=== PATIENT | female | born 1945 | race Caucasian/White ===

== ENCOUNTER 2016-09-12 08:23 | Inpatient (IN) | payer OTHER ==
[~2016-09-12] VITALS: Ht 157.5 cm; Wt 76.5 kg
[~2016-09-12 08:23] MED LIST: ABILIFY15 MG PO; ABILIFY5 MG PO; ADVAIR 250/501 DISK IH; ADVIL MIGRAINE200 MG PO; ADVIL,NUPRIN,M200 MG PO; ADVIL200 M1 PO; ADVIL200 MG PO; AMBIEN10 MG PO; AMBIEN5 MG PO; ARIPIPRAZOLE15 MG PO; CARDIZEM CD,CA120 MG PO; CARDIZEM CD,CA240 MG PO; CARDIZEM CD,CA300 MG PO; CARDIZEM CD120 MG PO; CLONAZEPAM0.5 MG PO; CLONAZEPAM1 MG PO; CLOPIDOGREL75 MG PO; COLACE100 MG PO; DALIRESP500 MCG PO; DELTASONE1 MG; DELTASONE10 MG PO; DELTASONE20 M1 PO; DITROPAN5 MG PO; DOXYCYCLINE HY100 M3 PO; DUONEB3 ML IH; Desyrel PO; Ditropan PO; EFFEXOR XR150 MG PO; EFFEXOR XR75 MG PO; EFFEXOR75 MG PO; ENDOCET 5-3251 EACH PO; Effexor XR PO; FIORICET,ESG1 TABLET PO; FLONASE16 G1 BOTH NARES; FLUTICASONE PRO16 GM BOTH NARES; FUROSEMIDE20 MG PO; IMDUR30 MG PO; IRON325 M1 PO; KEFLEX750 MG PO; KEPPRA250 M1 PO; KEPPRA250 MG PO; KEPPRA750 MG PO; KLONOPIN0.5 M1 PO; KLONOPIN1 MG PO; LASIX20 MG PO; LEVAQUIN500 MG PO; LEVAQUIN750 MG PO; LEVETIRACETAM750 MG PO; LEVOFLOXACIN250 MG PO; LEVOFLOXACIN750 MG PO; LIDODERM 5% P1 PATCH TD; LISINOPRIL10 MG PO; LISINOPRIL5 MG PO; LOPRESSOR50 MG PO; Levaquin PO; Lopressor PO; MEDROL DOSEPAK4 MG PO; MELATONIN5 M1 PO; METOPROLOL PO; MUCINEX600 MG PO; MUPIROCIN22 GM TP; NITROSTAT0.4 MG SL; OMNICEF300 MG PO; PERCOCET 5/31 TABLET PO; PHENERGAN-CODE120 ML PO; PLAVIX75 MG PO; PRAVASTATIN SOD40 MG PO; PREDNISONE; PREDNISONE10 M1 PO; PREDNISONE10 MG PO; PREDNISONE20 MG PO; PREDNISONE5 MG PO; PREDNISONE50 MG PO; PRINIVIL10 MG PO; PROAIR HFA8.5 GM IH; PROTONIX40 MG PO; PROVENTIL,2.5 MG/3 M IH; Proventil,Ventolin H IH; SANCTURA XR60 MG PO; SIMVASTATIN40 M1 PO; SIMVASTATIN40 MG PO; SPIRIVA1 INHALATI IH; SYMBICORT IH; SYMBICORT60 INHALAT IH; THEO-24200 MG PO; THEO-DUR,THEOC200 MG PO; THEOPHYLLINE A200 M1 PO; THEOPHYLLINE400 MG PO; TOPROL XL50 MG PO; TOVIAZ4 MG PO; TRAZODONE HCL50 MG PO; VENLAFAXINE HC150 MG PO; VENLAFAXINE HCL75 M3 PO; VENTOLIN HFA18 GM IH; VESICARE5 MG PO; WELLBUTRIN SR100 MG PO; XANAX0.5 MG PO; XOPENEX1.25 MG/0. IH; ZESTRIL,PRINIVI10 M1 PO; ZITHROMAX TRI-500 MG PO; ZITHROMAX Z-PA250 MG PO; ZOLPIDEM TARTRA10 MG PO; ZOLPIDEM TARTRAT5 MG PO; predniSONE PO
[2016-09-12 09:10] LABS: MCH 27.8 PG (29.0-34.0); MCHC 31.4 G/DL (30.0-36.0); MCV 88.7 FL (83-99); MEAN PLAT.VOLUME 9.8 uM^3 (9.5-12.4); PLATELET COUNT 183 K/uL (156-360); RBC DIS.WIDTH-CV 14.3 % (11.8-14.6); RBC DIS.WIDTH-SD 45.8 % (39-53); RED BLOOD COUNT 4.17 M/uL (3.80-5.20); WHITE BLOOD COUNT 12.9 K/uL (4.1-10.2)
[2016-09-12 09:20] LABS: CHLORIDE 107 mEq/L (99-109)
[2016-09-12 09:21] LABS: POTASSIUM 4.6 mEq/L (3.7-5.4); SODIUM 142 mEq/L (136-147)
[2016-09-12 09:22] LABS: GLUCOSE 159 mg/dL (70-99)
[2016-09-12 09:24] LABS: ANION GAP 12 MEQ/L (2-14)
[2016-09-12 09:26] LABS: GFR ESTIMATE (CALCULATED) > 59 mL/min/
[2016-09-12 09:27] LABS: UREA NITROGEN (BUN) 27 mg/dL (9-23)
[2016-09-12 09:30] LABS: TROP-I INTERPRETATION NEGATIVE; TROPONIN-I 0.01 ng/mL (0.0-0.30)
[2016-09-12 11:24] LABS: ADD MIUA? NO; BILIRUBIN NEGATIVE; BLOOD NEGATIVE; COLOR YELLOW ((YELLOW)); GLUCOSE (STRIP) NEGATIVE; KETONES NEGATIVE; LEUKOCYTES NEGATIVE; NITRITE NEGATIVE; PROTEIN (STRIP) 30; UCUL ADDED? NO; UROBILINOGEN 0.2 MG/DL (0.2-1.0)
[2016-09-12] MEDS ORDERED: DILTIAZEM 24HR300 MG PO (12:31)
[2016-09-12] MEDS ORDERED: NITROGLYCERIN0.4 MG SL (12:31)
[2016-09-12] MEDS ORDERED: PREDNISONE10 MG PO (12:32)
[2016-09-12] MEDS ORDERED: PRAVACHOL40 MG PO (12:33)
[2016-09-12 14:00] VITALS: BP 137/76
[2016-09-12 18:31] LABS: TROP-I INTERPRETATION NEGATIVE; TROPONIN-I < 0.01 ng/mL (0.0-0.30)
[2016-09-12 19:29] VITALS: BP 136/61
[2016-09-12 23:02] VITALS: BP 134/64
[2016-09-13 04:33] VITALS: BP 134/61
[2016-09-13 06:15] LABS: ANION GAP 6 MEQ/L (2-14); CHLORIDE 107 MEQ/L (99-109); GFR ESTIMATE (CALCULATED) > 59 mL/min/; GLUCOSE 143 mg/dL (70-99); POTASSIUM 4.3 MEQ/L (3.7-5.4); SAMPLE HEMOLYSIS CHECK 0; SAMPLE ICTERIC CHECK 0; SAMPLE LIPEMIA CHECK 0; SODIUM 142 MEQ/L (136-147); UREA NITROGEN (BUN) 33 mg/dL (9-23)
[2016-09-13 08:07] LABS: BASE EXCESS 1.5 mEq/L (-3 to +3); BICARBONATE 26.6 mEq/L (22-26); CARBOXY HGB 1.2 % (0-5); COMMENTS - BLOOD GASES A+C+; DEVICE NC; METHEMOGLOBIN 1.3 % (0-1.5); O2 FLOW 2 L/MIN; PCO2 43 mm Hg (35-45); PO2 88 mm Hg (80-100); SITE LR; TOTAL RESP RATE 28 resp/min
[2016-09-13 08:56] VITALS: BP 145/90
[2016-09-13 09:53] LABS: TROP-I INTERPRETATION NEGATIVE; TROPONIN-I < 0.01 ng/mL (0.0-0.30)
[2016-09-13 12:49] VITALS: BP 140/65
[2016-09-13 16:48] VITALS: BP 119/68
[2016-09-13 21:58] VITALS: BP 115/61
[2016-09-13 23:57] VITALS: BP 145/65
[2016-09-14 04:19] VITALS: BP 160/73
[2016-09-14 08:35] VITALS: BP 145/75
[2016-09-14 13:06] VITALS: BP 122/68
[2016-09-14 15:56] VITALS: BP 128/72
[2016-09-14 20:04] VITALS: BP 142/77
[2016-09-15] VITALS (7 sets, daily range): BP systolic 110–155; BP diastolic 53–80
[2016-09-16 04:02] LABS: INFLUENZA A VIRAL ANTIGEN NEGATIVE; INFLUENZA B VIRAL ANTIGEN NEGATIVE
[2016-09-16 04:52] VITALS: BP 136/83
[2016-09-16 08:21] VITALS: BP 162/83
[2016-09-16] MEDS ORDERED: AZITHROMYCIN500 M1 PO (15:09)
[2016-09-16] MEDS ORDERED: ALPRAZOLAM0.25 M2 PO (15:10)
[2016-09-16] MEDS ORDERED: PREDNISONE20 MG PO (15:10)
== END 2016-09-16 15:40 | disposition home or self-care (01) | DRG 191 ==
LOC: EME → EDBD 08:23 → EME 08:23 → EDOF 12:12 → 5WEST 12:12
PROVIDERS: Emergency Medicine; Hospitalist; Internal Medicine; Nurse Practitioner Adult Health; Nurse Practitioner Family
DX: J44.0 Chronic obstructive pulmonary disease with (acute) lower respiratory infection (principal); J20.9 Acute bronchitis, unspecified; J44.1 Chronic obstructive pulmonary disease with (acute) exacerbation; J96.11 Chronic respiratory failure with hypoxia; Z99.81 Dependence on supplemental oxygen; I42.9 Cardiomyopathy, unspecified; I48.91 Unspecified atrial fibrillation; I10 Essential (primary) hypertension; G40.909 Epilepsy, unspecified, not intractable, without status epilepticus; F03.90 Unspecified dementia, unspecified severity, without behavioral disturbance, psychotic disturbance, mood disturbance, and anxiety; F41.9 Anxiety disorder, unspecified; F32.9 Major depressive disorder, single episode, unspecified; I25.10 Atherosclerotic heart disease of native coronary artery without angina pectoris; I25.2 Old myocardial infarction; E66.9 Obesity, unspecified; Z68.30 Body mass index [BMI] 30.0-30.9, adult; Z87.891 Personal history of nicotine dependence
CPT/HCPCS: 36600; 71010; 71275; 80048; 81003; 82803; 84484; 85027; 87070; 87205; 87502; 93005; 94640; 94640 76; 94799; 99202; 99281; 99285; G0378; J1650; J2930; J7030; J7512; J7644

== ENCOUNTER 2016-11-26 15:06 | Inpatient (IN) | payer OTHER ==
[~2016-11-26] VITALS: Ht 157.5 cm; Wt 80.1 kg
[~2016-11-26 15:06] MED LIST changes: +ALPRAZOLAM0.25 M2 PO; +AZITHROMYCIN500 M1 PO; +DILTIAZEM 24HR300 MG PO; +NITROGLYCERIN0.4 MG SL; +PRAVACHOL40 MG PO
[2016-11-26 15:53] LABS: HEMATOCRIT 35.8 % (36.0-46.0); MCH 28.8 PG (29.0-34.0); MCHC 30.4 G/DL (30.0-36.0); MCV 94.5 FL (83-99); MEAN PLAT.VOLUME 10.1 uM^3 (9.5-12.4); PLATELET COUNT 192 K/uL (156-360); RBC DIS.WIDTH-CV 14.3 % (11.8-14.6); RBC DIS.WIDTH-SD 49.1 % (39-53); RED BLOOD COUNT 3.79 M/uL (3.80-5.20); WHITE BLOOD COUNT 12.5 K/uL (4.1-10.2)
[2016-11-26 16:03] LABS: CHLORIDE 107 mEq/L (99-109); SODIUM 140 mEq/L (136-147)
[2016-11-26 16:05] LABS: GLUCOSE 207 mg/dL (70-99)
[2016-11-26 16:06] LABS: ANION GAP 14 MEQ/L (2-14)
[2016-11-26 16:09] LABS: GFR ESTIMATE (CALCULATED) 52 mL/min/
[2016-11-26 16:10] LABS: UREA NITROGEN (BUN) 20 mg/dL (9-23)
[2016-11-26 16:14] LABS: TROP-I INTERPRETATION NEGATIVE; TROPONIN-I < 0.01 ng/mL (0.0-0.30)
[2016-11-26] MEDS ORDERED: SPIRIVA1 INHALATI IH (19:59)
[2016-11-26] MEDS ORDERED: AZITHROMYCIN500 M1 PO (20:01)
[2016-11-26] MEDS ORDERED: ADVIL MIGRAINE200 MG PO (20:01)
[2016-11-26] MEDS ORDERED: ISOSORBIDE MONO30 MG PO (20:02)
[2016-11-26] MEDS ORDERED: THEOPHYLLINE400 MG PO (20:02)
[2016-11-26] MEDS ORDERED: LORAZEPAM0.5 MG PO (20:02)
[2016-11-26] MEDS ORDERED: PREDNISONE10 MG PO (20:02)
[2016-11-26] MEDS ORDERED: LEVALBUTER1.25 MG/0. IH (20:03)
[2016-11-26] MEDS ORDERED: PROTONIX40 MG PO (20:03)
[2016-11-26] MEDS ORDERED: LISINOPRIL5 MG PO (20:03)
[2016-11-27 01:34] VITALS: BP 130/64
[2016-11-27 04:34] VITALS: BP 119/58
[2016-11-27 06:26] LABS: HEMATOCRIT 34.1 % (36.0-46.0); MCH 28.4 PG (29.0-34.0); MCHC 30.5 G/DL (30.0-36.0); MCV 93.2 FL (83-99); MEAN PLAT.VOLUME 10.2 uM^3 (9.5-12.4); PLATELET COUNT 206 K/uL (156-360); RBC DIS.WIDTH-CV 14.3 % (11.8-14.6); RBC DIS.WIDTH-SD 48.5 % (39-53); RED BLOOD COUNT 3.66 M/uL (3.80-5.20)
[2016-11-27 06:39] LABS: WHITE BLOOD COUNT 8.5 K/uL (4.1-10.2)
[2016-11-27 06:57] VITALS: BP 114/55
[2016-11-27 06:57] LABS: ALKALINE PHOSPHATASE 74 IU/L (3-129); ANION GAP 13 MEQ/L (2-14); CHLORIDE 105 MEQ/L (99-109); GFR ESTIMATE (CALCULATED) 58 mL/min/; GLUCOSE 153 mg/dL (70-99); POTASSIUM 4.3 MEQ/L (3.7-5.4); SAMPLE HEMOLYSIS CHECK 0; SAMPLE ICTERIC CHECK 0; SAMPLE LIPEMIA CHECK 0; SODIUM 140 MEQ/L (136-147); TOTAL BILIRUBIN 0.2 MG/DL (0.0-1.0); UREA NITROGEN (BUN) 23 mg/dL (9-23)
[2016-11-27 07:39] LABS: Estimated Average Glucose 120 mg/dL (70-123); HEMOGLOBIN A1c (GLYCOHEMOGLOB) 5.8 % HGB (Below 5.7)
[2016-11-27 11:41] VITALS: BP 112/55
[2016-11-27 12:12] LABS: POINT-OF-CARE METER ID UU13113831
[2016-11-27 15:41] VITALS: BP 120/65
[2016-11-27 20:15] VITALS: BP 100/51
[2016-11-28] VITALS (7 sets, daily range): BP systolic 109–1120; BP diastolic 55–65
[2016-11-28 06:23] LABS: ANION GAP 7 MEQ/L (2-14); CHLORIDE 108 MEQ/L (99-109); GFR ESTIMATE (CALCULATED) 52 mL/min/; GLUCOSE 146 mg/dL (70-99); MAGNESIUM 1.7 mg/dl (1.3-2.7); POTASSIUM 4.9 MEQ/L (3.7-5.4); SAMPLE HEMOLYSIS CHECK 0; SAMPLE ICTERIC CHECK 0; SAMPLE LIPEMIA CHECK 0; SODIUM 143 MEQ/L (136-147); UREA NITROGEN (BUN) 39 mg/dL (9-23)
[2016-11-28 06:25] LABS: EOSINOPHIL (%) 0 % (0-5); HEMATOCRIT 32.3 % (36.0-46.0); IMMATURE GRANULOCYTE (%) 0.6 % (0.0-0.7); IMMATURE GRANULOCYTE COUNT 0.1 K/uL; LYMPHOCYTE COUNT 0.7 K/uL (1.0-2.8); MCH 28.9 PG (29.0-34.0); MCV 96.1 FL (83-99); MONOCYTE (%) 2.4 % (3-12); MONOCYTE COUNT 0.3 K/uL (0-0.8); NEUTROPHIL (%) 92.1 % (45-76); PLATELET COUNT 190 K/uL (156-360); RBC DIS.WIDTH-CV 14.6 % (11.8-14.6); RBC DIS.WIDTH-SD 52.1 % (39-53); RED BLOOD COUNT 3.36 M/uL (3.80-5.20)
[2016-11-28 06:37] LABS: WHITE BLOOD COUNT 14.1 K/uL (4.1-10.2)
[2016-11-28 08:36] LABS: BASE EXCESS 0 mEq/L (-3 to +3); BICARBONATE 24.8 mEq/L (22-26); CARBOXY HGB 0.4 % (0-5); METHEMOGLOBIN 0.5 % (0-1.5); PCO2 40 mm Hg (35-45); PO2 74 mm Hg (80-100)
[2016-11-28 08:38] LABS: COMMENTS - BLOOD GASES A+C+; DEVICE NC; O2 FLOW 2 L/MIN; SITE RR; TOTAL RESP RATE 24 resp/min
[2016-11-28 09:06] LABS: TROP-I INTERPRETATION NEGATIVE; TROPONIN-I < 0.01 ng/mL (0.0-0.30)
[2016-11-28 19:12] LABS: ADD MIUA? NO; BILIRUBIN NEGATIVE; BLOOD NEGATIVE; COLOR YELLOW ((YELLOW)); GLUCOSE (STRIP) NEGATIVE; KETONES NEGATIVE; LEUKOCYTES NEGATIVE; NITRITE NEGATIVE; PROTEIN (STRIP) NEGATIVE; SPECIFIC GRAVITY 1.021 (1.000-1.030); UROBILINOGEN 0.2 MG/DL (0.2-1.0)
[2016-11-29 03:48] VITALS: BP 129/53
[2016-11-29 07:23] VITALS: BP 114/64
[2016-11-29 09:08] LABS: HEMATOCRIT 32.1 % (36.0-46.0); MCH 28.7 PG (29.0-34.0); MCHC 30.8 G/DL (30.0-36.0); MEAN PLAT.VOLUME 9.8 uM^3 (9.5-12.4); PLATELET COUNT 217 K/uL (156-360); RBC DIS.WIDTH-CV 14.7 % (11.8-14.6); RBC DIS.WIDTH-SD 50.2 % (39-53); RED BLOOD COUNT 3.45 M/uL (3.80-5.20); WHITE BLOOD COUNT 15.1 K/uL (4.1-10.2)
[2016-11-29 09:42] LABS: ANION GAP 10 MEQ/L (2-14); CHLORIDE 105 MEQ/L (99-109); GFR ESTIMATE (CALCULATED) 52 mL/min/; GLUCOSE 173 mg/dL (70-99); POTASSIUM 3.8 MEQ/L (3.7-5.4); SAMPLE HEMOLYSIS CHECK 0; SAMPLE ICTERIC CHECK 0; SAMPLE LIPEMIA CHECK 0; SODIUM 140 MEQ/L (136-147); UREA NITROGEN (BUN) 47 mg/dL (9-23)
[2016-11-29 11:27] VITALS: BP 114/64
[2016-11-29 16:55] VITALS: BP 150/62
[2016-11-29 19:35] VITALS: BP 148/79
[2016-11-29 23:19] VITALS: BP 145/62
[2016-11-30 03:29] VITALS: BP 143/70
[2016-11-30 07:02] VITALS: BP 130/76
[2016-11-30 11:05] VITALS: BP 122/74
[2016-11-30 11:33] VITALS: BP 132/83
[2016-11-30 15:36] VITALS: BP 148/64
== END 2016-11-30 18:40 | disposition home health service (06) | DRG 191 ==
LOC: EME 15:06 → EDOF 22:08 → 5WEST 22:08 → EDOF 22:08 → 5WEST 11-27 01:16 → 3EAST 11-27 11:23 → 5WEST 11-27 11:23 → 3EAST 11-27 19:36
PROVIDERS: Emergency Medicine; Hospitalist; Internal Medicine; Physician Assistant
DX: J44.1 Chronic obstructive pulmonary disease with (acute) exacerbation (principal); J96.11 Chronic respiratory failure with hypoxia; I42.9 Cardiomyopathy, unspecified; R00.0 Tachycardia, unspecified; I25.10 Atherosclerotic heart disease of native coronary artery without angina pectoris; Z99.81 Dependence on supplemental oxygen; I10 Essential (primary) hypertension; F03.90 Unspecified dementia, unspecified severity, without behavioral disturbance, psychotic disturbance, mood disturbance, and anxiety; I25.2 Old myocardial infarction; E78.00 Pure hypercholesterolemia, unspecified; E66.9 Obesity, unspecified; K21.9 Gastro-esophageal reflux disease without esophagitis; G40.909 Epilepsy, unspecified, not intractable, without status epilepticus; F32.9 Major depressive disorder, single episode, unspecified; R73.9 Hyperglycemia, unspecified; D64.9 Anemia, unspecified; G47.30 Sleep apnea, unspecified; J20.9 Acute bronchitis, unspecified; J44.0 Chronic obstructive pulmonary disease with (acute) lower respiratory infection; F41.9 Anxiety disorder, unspecified
CPT/HCPCS: 36600; 71010; 71020; 71275; 80048; 80053; 80198; 81003; 82607; 82728; 82746; 82803; 82948; 83036; 83735; 84466; 84484; 85025; 85027; 85045; 87086; 93005; 94640; 94640 76; 94799; 99202; 99281; 99285; G0378; G8978 GP CI; G8979 GP CH; G8987 GO CI; G8988 GO CH; J1644; J2920; J2930; J7120; J7512; J7644

== ENCOUNTER 2017-03-05 18:51 | Inpatient (IN) | payer OTHER ==
[~2017-03-05] VITALS: Ht 157.5 cm; Wt 85.0 kg
[~2017-03-05 18:51] MED LIST changes: +ISOSORBIDE MONO30 MG PO; +LEVALBUTER1.25 MG/0. IH; +LORAZEPAM0.5 MG PO
[2017-03-05 19:18] LABS: HEMATOCRIT 37.6 % (36.0-46.0); MCH 27.7 PG (29.0-34.0); MCHC 29.8 G/DL (30.0-36.0); MCV 93.1 FL (83-99); MEAN PLAT.VOLUME 9.9 uM^3 (9.5-12.4); PLATELET COUNT 142 K/uL (156-360); RBC DIS.WIDTH-CV 13.6 % (11.8-14.6); RBC DIS.WIDTH-SD 46.1 % (39-53); RED BLOOD COUNT 4.04 M/uL (3.80-5.20); WHITE BLOOD COUNT 7.8 K/uL (4.1-10.2)
[2017-03-05 19:32] LABS: CHLORIDE 103 mEq/L (99-109); POTASSIUM 3.8 mEq/L (3.7-5.4); SODIUM 145 mEq/L (136-147)
[2017-03-05 19:34] LABS: GLUCOSE 106 mg/dL (70-99)
[2017-03-05 19:35] LABS: ANION GAP 9 MEQ/L (2-14)
[2017-03-05 19:38] LABS: GFR ESTIMATE (CALCULATED) 58 mL/min/; UREA NITROGEN (BUN) 17 mg/dL (9-23)
[2017-03-05 19:43] LABS: TROP-I INTERPRETATION NEGATIVE; TROPONIN-I < 0.01 ng/mL (0.0-0.30)
[2017-03-05 19:55] LABS: D-DIMER ELISA 1.32 mg/L FEU (< 0.57)
[2017-03-05 23:43] VITALS: BP 141/73
[2017-03-06 01:30] LABS: TROP-I INTERPRETATION NEGATIVE; TROPONIN-I < 0.01 ng/mL (0.0-0.30)
[2017-03-06 01:37] LABS: ALKALINE PHOSPHATASE 80 IU/L (3-129); DIRECT BILIRUBIN 0.1 mg/dL (0.0-0.3); LIPASE 28 U/L (1.0-51.0); TOTAL BILIRUBIN 0.2 MG/DL (0.0-1.0)
[2017-03-06 04:59] VITALS: BP 127/71
[2017-03-06 09:00] VITALS: BP 127/60
[2017-03-06 09:06] LABS: MCH 27.7 PG (29.0-34.0); MCHC 30.5 G/DL (30.0-36.0); MCV 90.7 FL (83-99); PLATELET COUNT 162 K/uL (156-360); RBC DIS.WIDTH-CV 13.4 % (11.8-14.6); RED BLOOD COUNT 4.08 M/uL (3.80-5.20); WHITE BLOOD COUNT 8.1 K/uL (4.1-10.2)
[2017-03-06 09:31] LABS: TROP-I INTERPRETATION NEGATIVE; TROPONIN-I 0.02 ng/mL (0.0-0.30)
[2017-03-06 09:35] LABS: ANION GAP 10 MEQ/L (2-14); CHLORIDE 101 MEQ/L (99-109); GFR ESTIMATE (CALCULATED) > 59 mL/min/; GLUCOSE 150 mg/dL (70-99); POTASSIUM 4.1 MEQ/L (3.7-5.4); SAMPLE HEMOLYSIS CHECK 2; SAMPLE ICTERIC CHECK 0; SAMPLE LIPEMIA CHECK 0; SODIUM 142 MEQ/L (136-147); UREA NITROGEN (BUN) 15 mg/dL (9-23)
[2017-03-06] MEDS ORDERED: DILTIAZEM 24HR180 M3 PO (10:37)
[2017-03-06 11:25] LABS: POINT-OF-CARE METER ID UU14162513
[2017-03-06 11:26] VITALS: BP 116/65
[2017-03-06] MEDS ORDERED: LUNESTA3 MG PO (11:33)
[2017-03-06] MEDS ORDERED: FUROSEMIDE20 MG PO (11:33)
[2017-03-06 16:29] VITALS: BP 122/73
[2017-03-06 20:00] VITALS: BP 107/59
[2017-03-06 21:33] LABS: POINT-OF-CARE METER ID UU13113831
[2017-03-07 01:14] VITALS: BP 126/83
[2017-03-07 04:46] VITALS: BP 113/58
[2017-03-07 08:30] VITALS: BP 100/44
[2017-03-07 08:30] LABS: POINT-OF-CARE METER ID UU14162513
[2017-03-07 12:18] VITALS: BP 114/67
[2017-03-07 15:58] VITALS: BP 121/60
[2017-03-07 19:56] VITALS: BP 98/50
[2017-03-07 21:52] LABS: POINT-OF-CARE METER ID UU14162513
[2017-03-08 00:54] VITALS: BP 119/57
[2017-03-08 04:42] VITALS: BP 136/82
[2017-03-08 10:10] VITALS: BP 122/58
[2017-03-08 12:12] VITALS: BP 131/67
[2017-03-08 12:30] LABS: POINT-OF-CARE METER ID UU13113700
[2017-03-08] MEDS ORDERED: PREDNISONE10 MG PO (14:27)
[2017-03-08] MEDS ORDERED: LORAZEPAM0.5 MG PO (14:35)
== END 2017-03-08 16:22 | disposition home or self-care (01) | DRG 190 ==
LOC: EME 18:51 → EDOF 22:13 → 5WEST 22:13
PROVIDERS: Hospitalist; Internal Medicine
DX: J44.1 Chronic obstructive pulmonary disease with (acute) exacerbation (principal); J96.21 Acute and chronic respiratory failure with hypoxia; I51.81 Takotsubo syndrome; I50.9 Heart failure, unspecified; R00.0 Tachycardia, unspecified; M81.0 Age-related osteoporosis without current pathological fracture; F43.10 Post-traumatic stress disorder, unspecified; F31.9 Bipolar disorder, unspecified; I25.10 Atherosclerotic heart disease of native coronary artery without angina pectoris; F03.90 Unspecified dementia, unspecified severity, without behavioral disturbance, psychotic disturbance, mood disturbance, and anxiety; G40.909 Epilepsy, unspecified, not intractable, without status epilepticus; E78.5 Hyperlipidemia, unspecified; I89.0 Lymphedema, not elsewhere classified; M19.90 Unspecified osteoarthritis, unspecified site; Z99.81 Dependence on supplemental oxygen; I25.2 Old myocardial infarction; Z87.891 Personal history of nicotine dependence; Z68.34 Body mass index [BMI] 34.0-34.9, adult; Z79.51 Long term (current) use of inhaled steroids; Z79.899 Other long term (current) drug therapy
CPT/HCPCS: 71020; 71275; 80048; 80076; 82948; 83690; 84443; 84484; 85027; 85379; 93005; 94640; 94640 76; 94799; 97530 GO; 99202; 99281; 99285; G0378; G8987 GO CJ; G8988 CI; J1100; J1644; J1815; J2270; J2405; J2930; J3475; J7040; J7644

== ENCOUNTER 2017-08-09 16:03 | Inpatient (IN) | payer OTHER ==
[~2017-08-09] VITALS: Ht 157.5 cm; Wt 76.8 kg
[~2017-08-09 16:03] MED LIST changes: +DILTIAZEM 24HR180 M3 PO; +LUNESTA3 MG PO
[2017-08-09 17:30] LABS: HEMATOCRIT 45.2 % (36.0-46.0); MCH 28.1 PG (29.0-34.0); MCHC 31.6 G/DL (30.0-36.0); MEAN PLAT.VOLUME 10.4 uM^3 (9.5-12.4); PLATELET COUNT 187 K/uL (156-360); RED BLOOD COUNT 5.08 M/uL (3.80-5.20); WHITE BLOOD COUNT 15.9 K/uL (4.1-10.2)
[2017-08-09 17:40] LABS: CHLORIDE 101 mEq/L (99-109); POTASSIUM 3.1 mEq/L (3.7-5.4); SODIUM 140 mEq/L (136-147)
[2017-08-09 17:43] LABS: GLUCOSE 133 mg/dL (70-99)
[2017-08-09 17:44] LABS: ANION GAP 9 MEQ/L (2-14)
[2017-08-09 17:45] LABS: TOTAL BILIRUBIN 0.4 mg/dL (0.0-1.0)
[2017-08-09 17:46] LABS: ALKALINE PHOSPHATASE 78 IU/L (3-129)
[2017-08-09 17:47] LABS: GFR ESTIMATE (CALCULATED) 43 mL/min/
[2017-08-09 17:48] LABS: DIRECT BILIRUBIN 0.2 mg/dL (0.0-0.3); UREA NITROGEN (BUN) 20 mg/dL (9-23)
[2017-08-09 17:50] LABS: LIPASE 40 U/L (1.0-51.0)
[2017-08-09 17:55] LABS: TROP-I INTERPRETATION NEGATIVE; TROPONIN-I 0.02 ng/mL (0.0-0.30)
[2017-08-09 19:43] LABS: ADD MIUA? YES; BILIRUBIN NEGATIVE; BLOOD NEGATIVE; COLOR YELLOW ((YELLOW)); GLUCOSE (STRIP) 50; KETONES NEGATIVE; LEUKOCYTES TRACE; NITRITE NEGATIVE; PROTEIN (STRIP) 100; UROBILINOGEN 0.2 MG/DL (0.2-1.0)
[2017-08-09 19:49] LABS: BACTERIA RARE /HPF; EPITHELIAL CELLS 2+ /HPF; MUCUS TRACE /LPF; RED BLOOD CELLS 0-5 /HPF (0-5)
[2017-08-09 20:00] LABS: SPECIFIC GRAVITY 1.076 (1.000-1.030)
[2017-08-09] MEDS ORDERED: MORPHINE CON20 MG/M1 PO (20:15)
[2017-08-09] MEDS ORDERED: LORAZEPAM0.5 MG PO (20:15)
[2017-08-09] MEDS ORDERED: DULCOLAX10 MG PR (20:15)
[2017-08-09] MEDS ORDERED: COMPAZINE10 MG PO (20:16)
[2017-08-09] MEDS ORDERED: HYOSCYAMINE0.125 M1 SL (20:17)
[2017-08-09] MEDS ORDERED: HALOPERIDOL2 MG/1 ML PO (20:17)
[2017-08-09] MEDS ORDERED: TYLENOL650 MG PR (20:17)
[2017-08-09] MEDS ORDERED: SALINE NASAL SP45 ML BOTH NARES (20:18)
[2017-08-09] MEDS ORDERED: PHENERGAN1.25 MG/ML PO (20:20)
[2017-08-09] MEDS ORDERED: IMODIUM A-D2 M2 PO (20:21)
[2017-08-09] MEDS ORDERED: AZITHROMYCIN500 M1 PO (20:24)
[2017-08-09] MEDS ORDERED: PREDNISONE10 MG PO ×2 (20:26→20:41)
[2017-08-09] MEDS ORDERED: ALBUTEROL2.5 MG/3 M IH (20:27)
[2017-08-09] MEDS ORDERED: ATIVAN0.5 MG PO (20:40)
[2017-08-09] MEDS ORDERED: IRON325 M1 PO (20:41)
[2017-08-09 23:45] VITALS: BP 139/64
[2017-08-10] VITALS (7 sets, daily range): BP systolic 117–132; BP diastolic 58–63
[2017-08-10 06:01] LABS: HEMATOCRIT 40.3 % (36.0-46.0); MCH 27.9 PG (29.0-34.0); MEAN PLAT.VOLUME 10.3 uM^3 (9.5-12.4); PLATELET COUNT 149 K/uL (156-360); RBC DIS.WIDTH-CV 14.2 % (11.8-14.6); RBC DIS.WIDTH-SD 46.4 % (39-53); RED BLOOD COUNT 4.48 M/uL (3.80-5.20); WHITE BLOOD COUNT 10.7 K/uL (4.1-10.2)
[2017-08-10 06:25] LABS: ANION GAP 10 MEQ/L (2-14); CHLORIDE 102 MEQ/L (99-109); GFR ESTIMATE (CALCULATED) 43 mL/min/; GLUCOSE 182 mg/dL (70-99); SAMPLE HEMOLYSIS CHECK 0; SAMPLE ICTERIC CHECK 0; SAMPLE LIPEMIA CHECK 0; SODIUM 139 MEQ/L (136-147); UREA NITROGEN (BUN) 23 mg/dL (9-23)
[2017-08-10 06:29] LABS: POTASSIUM 4.2 MEQ/L (3.7-5.4)
[2017-08-10 08:46] LABS: TROP-I INTERPRETATION NEGATIVE; TROPONIN-I 0.01 ng/mL (0.0-0.30)
[2017-08-11 03:57] VITALS: BP 116/55
[2017-08-11 07:31] VITALS: BP 127/59
[2017-08-11 11:17] VITALS: BP 124/60
[2017-08-11 16:22] LABS: TROP-I INTERPRETATION NEGATIVE; TROPONIN-I 0.03 ng/mL (0.0-0.30)
[2017-08-11 16:27] VITALS: BP 127/60
[2017-08-11 19:46] VITALS: BP 138/70
[2017-08-11 22:57] VITALS: BP 130/72
[2017-08-12 04:00] VITALS: BP 142/78
[2017-08-12 07:00] VITALS: BP 145/94
[2017-08-12 11:00] VITALS: BP 122/55
[2017-08-12] MEDS ORDERED: PREDNISONE10 MG PO (11:29)
[2017-08-12] MEDS ORDERED: CARDIZEM CD,CA240 MG PO (11:29)
[2017-08-12 15:25] VITALS: BP 140/78
== END 2017-08-12 18:44 | disposition hospice, home (50) | DRG 190 ==
LOC: EME 16:03 → EDOF 20:00 → ENRESERV 20:02 → 5EAST 23:46
PROVIDERS: Hospitalist; Physician Assistant; Physician Assistant Medical
DX: J44.1 Chronic obstructive pulmonary disease with (acute) exacerbation (principal); J96.21 Acute and chronic respiratory failure with hypoxia; N17.9 Acute kidney failure, unspecified; D72.829 Elevated white blood cell count, unspecified; T38.0X5A Adverse effect of glucocorticoids and synthetic analogues, initial encounter; I10 Essential (primary) hypertension; I25.10 Atherosclerotic heart disease of native coronary artery without angina pectoris; E86.0 Dehydration; E87.6 Hypokalemia; F41.9 Anxiety disorder, unspecified; G40.909 Epilepsy, unspecified, not intractable, without status epilepticus; F03.90 Unspecified dementia, unspecified severity, without behavioral disturbance, psychotic disturbance, mood disturbance, and anxiety; I71.4 Abdominal aortic aneurysm, without rupture; I87.8 Other specified disorders of veins; F32.9 Major depressive disorder, single episode, unspecified; Z51.5 Encounter for palliative care; Z66 Do not resuscitate; I25.2 Old myocardial infarction; Z79.52 Long term (current) use of systemic steroids; Z87.891 Personal history of nicotine dependence; Z99.81 Dependence on supplemental oxygen; Z88.6 Allergy status to analgesic agent
CPT/HCPCS: 71275; 74174; 74175; 80048; 80076; 81003; 83690; 83880; 84484; 85027; 93005; 94640; 94640 76; 94799; 99202; 99281; 99285; J1650; J2270; J2405; J2920; J2930; J3480; J7030

== ENCOUNTER 2017-08-18 01:28 | Emergency (ER) | payer OTHER ==
[~2017-08-18] VITALS: Ht 157.5 cm; Wt 77.6 kg
[~2017-08-18 01:28] MED LIST changes: +ALBUTEROL2.5 MG/3 M IH; +ATIVAN0.5 MG PO; +COMPAZINE10 MG PO; +DULCOLAX10 MG PR; +HALOPERIDOL2 MG/1 ML PO; +HYOSCYAMINE0.125 M1 SL; +IMODIUM A-D2 M2 PO; +MORPHINE CON20 MG/M1 PO; +PHENERGAN1.25 MG/ML PO; +SALINE NASAL SP45 ML BOTH NARES; +TYLENOL650 MG PR
[2017-08-18 03:32] LABS: HEMATOCRIT 41.9 % (36.0-46.0); MCH 27.8 PG (29.0-34.0); MCHC 31.7 G/DL (30.0-36.0); MCV 87.7 FL (83-99); MEAN PLAT.VOLUME 9.7 uM^3 (9.5-12.4); PLATELET COUNT 175 K/uL (156-360); RBC DIS.WIDTH-CV 14.4 % (11.8-14.6); RBC DIS.WIDTH-SD 46.1 % (39-53); RED BLOOD COUNT 4.78 M/uL (3.80-5.20); WHITE BLOOD COUNT 24.5 K/uL (4.1-10.2)
[2017-08-18 03:44] LABS: CHLORIDE 97 mEq/L (99-109); POTASSIUM 3.7 mEq/L (3.7-5.4); SODIUM 138 mEq/L (136-147)
[2017-08-18 03:46] LABS: GLUCOSE 110 mg/dL (70-99)
[2017-08-18 03:47] LABS: ANION GAP 14 MEQ/L (2-14)
[2017-08-18 03:49] LABS: SERUM ETHYL ALCOHOL < 10 mg/dL
[2017-08-18 03:50] LABS: GFR ESTIMATE (CALCULATED) 36 mL/min/; UREA NITROGEN (BUN) 19 mg/dL (9-23)
[2017-08-18 04:00] LABS: TROP-I INTERPRETATION NEGATIVE; TROPONIN-I 0.04 ng/mL (0.0-0.30)
[2017-08-18 04:19] LABS: ADD MIUA? YES; BILIRUBIN NEGATIVE; BLOOD NEGATIVE; COLOR AMBER ((YELLOW)); GLUCOSE (STRIP) NEGATIVE; KETONES NEGATIVE; LEUKOCYTES NEGATIVE; NITRITE NEGATIVE; PROTEIN (STRIP) 100; SPECIFIC GRAVITY 1.017 (1.000-1.030); UROBILINOGEN 0.2 MG/DL (0.2-1.0)
[2017-08-18 04:32] LABS: COCAINE NEGATIVE (150 ng/mL); PHENCYCLIDINE NEGATIVE (25 ng/mL); THC CANNABINOIDS NEGATIVE (50 ng/mL)
[2017-08-18 04:33] LABS: ADD MEDTOX COMMENT Y; AMPHETAMINE NEGATIVE (500 ng/mL); BARBITURATES NEGATIVE (200 ng/mL); BENZODIAZEPINES PRESUMPTIVE POSITIVE (150 ng/mL); INTERNAL CONTROLS VALID? YES; METHADONE NEGATIVE (200 ng/mL); METHAMPHETAMINE NEGATIVE (500 ng/mL); OPIATES (MORPHINE) PRESUMPTIVE POSITIVE (100 ng/mL); OXYCODONE NEGATIVE (100 ng/mL); PROPOXYPHENE NEGATIVE (300 ng/mL); TRICYCLIC ANTIDEPRESSANTS NEGATIVE (300 ng/mL)
[2017-08-18 05:09] LABS: CRYSTALS PRESENT
[2017-08-18 05:10] LABS: EPITHELIAL CELLS 1+ /HPF
[2017-08-18 05:12] LABS: CALCIUM OXALATE CRYSTALS 4+ /HPF; CASTS PRESENT /LPF
[2017-08-18 05:13] LABS: BACTERIA 2+ /HPF
[2017-08-18 05:14] LABS: FINE GRANULAR CASTS 0-5 /LPF; MUCUS 2+ /LPF; RED BLOOD CELLS 0-5 /HPF (0-5); UCUL ADDED? YES
[2017-08-18 05:21] LABS: BENZODIAZEPINES QUANT VALUE 0 NG/ML; BENZODIAZEPINES, URINE SCREEN Negative (200 ng/mL)
[2017-08-18 07:30] VITALS: BP 131/92
== END 2017-08-18 07:30 | disposition home or self-care (01) ==
LOC: EME → EDBD 01:28 → EME 01:28
PROVIDERS: Emergency Medicine
DX: F33.9 Major depressive disorder, recurrent, unspecified (principal); G89.29 Other chronic pain; J44.9 Chronic obstructive pulmonary disease, unspecified; I10 Essential (primary) hypertension; E78.5 Hyperlipidemia, unspecified; I25.2 Old myocardial infarction; Z99.81 Dependence on supplemental oxygen; Z88.0 Allergy status to penicillin; Z87.891 Personal history of nicotine dependence
CPT/HCPCS: 80048; 81003; 84484; 84999; 85027; 87086; 90839; 99281; 99285; G0480; J2060